=== PATIENT | female | born 1950 | race Caucasian/White ===

== ENCOUNTER 2025-05-06 09:14 | Outpatient (CLI) | payer MEDICARE, SELFPAY ==
--- OUTSIDE RECORDS SUMMARY | 2024-12-16 07:40 | XMS_ITS ---
Author Organization [facility] Address [address] [phone] Care Team Providers Care Tutoring Manager Name Role Phone HORTENCIA HERNANDEZ Primary Care [...] Status Risk Notes Problem Problem, abnormal examination ([id number]) Encounter for general adult medical examination with abnormal findings (Z00.01) Active confirmed Encounters Encounter Location Date [place] [address] [phone] 12/16/2024 HORTENCIA HERNANDEZ Encounter for general adult [...] Notes * VLADIMIR GEIGEROB:1950 (74 yo F)Acc No.[id number]:12/16/2024 Progress Notes Patient: KATI BARTLETT Provider: Charlene Hernandez M.D. :1950 A ge:74 Y S ex:Female Date:12/16/2024 Address:[address] [place] [address] Subjective: * Chief Complaints: * 1 . [...] History: M other: 61 yrs, diagnosed with [place]. B zahraa: 58 yrs, diagnosed with Heart [...] Electronic signature of HORTENCIA HERNANDEZ MD on 05/06/2025 at 09:21 AM EDT Sign off status: Pending * Provider: Charlene Hernandez M.D. Date: 0 12/16/2024 Generated for Kb varghese/Emmanuelle/eTleonasmpatience on: 0 05/06/2025 09:21 AM EDT History and Physical Notes * [...]
--- OUTSIDE RECORDS SUMMARY | 2025-05-06 09:21 | XMS_ITS | Patient Health Record ---
Author Organization [place] Address [address] [id number] Care Team Providers Care Academic Coach Name Role Phone HORTENCIA ROWAN Primary Care Provider [phone] Allergies Allergen (clinical drug ingredient) Drug/Non Drug Allergy documented on EMR Reaction Allergy Type Onset Date Status Vaccine product containing Influenza virus antigen (medicinal product) Influenza Vaccines Unknown Drug Allergy 11/13/2018 Ac tive Latex Latex Unknown Allergy 11/13/2018 Active Results Component Value Reference Range Notes TSH (899) Reviewed date:02/07/2025 09:53:02 AM Interpretation: Performing Lab:TP, [facility]-Bxvuj2012 [place] Gerry Finley MD Notes/Report: FASTING:YES FASTING: YES TSH 3.98 0.40-4.50 mIU/L T4, FREE (866) Reviewed date:02/07/2025 09:53:02 AM Interpretation: Performing Lab:[facility]21 [place] Gerry Finley MD Notes/Report: FASTING:YES FASTING: YES T4, FREE 1.1 0.8-1.8 ng/dL CBC (INCLUDES DIFF/PLT) (639 9) Reviewed date:02/07/2025 09:53:02 AM Interpretation: Performing Lab:[facility]15 [place] Gerry Finley MD Notes/Report: FASTING:YES FASTING: YES WHITE BLOOD CELL COUNT 6.9 3.8-10.8 Thousand/ uL RED BLOOD CELL COUNT 4.58 3.80-5.10 Million/uL HEMOGLOBIN 13.0 11.7-15.5 g/dL HEMATOCRIT 41.1 35.0-45.0 % MCV 89.7 80.0-100.0 fL MCH 28.4 27.0-33.0 pg MCHC 31.6 32.0-36.0 g/dL For adults, a slight decrease in the calculated MCHC value (in the range of 30 to 32 g/dL) is most likely not clinically significant; however, it should be interpreted with caution in correlation with other red cell parameters and the patient's clinical condition. RDW 13.2 11.0-15.0 % PLATELET COUNT 254 140-400 Thousand/uL MPV 10.8 7.5-12.5 fL ABSOLUTE NEUTROPHILS 3188 6795-9345 cells/uL ABSOLUTE LYMPHOCYTES 2974 850-3900 cells/uL ABSOLUTE MONOCYTES 490 200-950 cells/uL ABSOLUTE EOSINOPHILS 152 15-500 cells/uL ABSOLUTE BASOPHILS 97 0-200 cells/uL NEUTROPHILS 46.2 LYMPHOCYTES 43.1 MONOCYTES 7.1 EOSINOPHILS 2.2 BASOPHILS 1.4 ALT (823) Reviewed date:02/07/2025 09:53:02 AM Interpretation: Performing Lab:[facility]-Wygwb4521 [address] Alonzo [id number] Gerry Finley MD Notes/Report: FASTING:YES FASTING: YES ALT 14 6-29 U/L AST (822) Reviewed date:02/07/2025 09:53:02 AM Interpretation: Performing Lab:[facility]9317 [place] Gerry Finley MD Notes/Report: FASTING:YES FASTING: YES AST 17 10-35 U/L BASIC METABOLIC PANEL (80767 ) Reviewed date:02/07/2025 09:53:02 AM Interpretation: Performing Lab:[facility]aura[facility]wcb3048 [address]zo [id number] Gerry Finley MD Notes/Report: FASTING:YES FASTING: YES GLUCOSE 117 65-99 mg/dL Fasting reference interval For someone without known diabetes, a glucose value between 100 and 125 mg/dL is consistent with prediabetes and should be confirmed with a follow-up test. UREA NITROGEN (BUN) 27 7-25 mg/dL CREATININE 1.16 0.60-1.00 mg/dL EGFR 49 > OR = 60 mL/min/1.73m2 BUN/CREATININE RATIO 23 6-22 (calc) SODIUM 142 135-146 mmol/L POTASSIUM 3.9 3.5-5.3 mmol/L CHLORIDE 105 98-110 mmol/L CARBON DIOXIDE 27 20-32 mmol/L CALCIUM 9.5 8.6-10.4 mg/dL LIPID PANEL, STANDARD (7600) Reviewed date:02/07/2025 09:53:02 AM Interpretation: Performing Lab:[facility]-Ufqba1028 Lisa Alonzo [id number] Gerry Finley MD Notes/Report: FASTING:YES FASTING: YES CHOLESTEROL, TOTAL 249 <200 mg/dL HDL CHOLESTEROL 77 > OR = 50 mg/dL TRIGLYCERIDES 148 <150 mg/dL LDL-CHOLESTEROL 145 Reference range: <100 Desirable range <100 mg/dL for primary prevention; <70 mg/dL for patients with CHD or diabetic patients with > or = 2 CHD risk factors. LDL-C is now calculated using the Loco calculation, which is a validated novel method providing better accuracy than the Friedewald equation in the estimation of LDL-C. Leeroy SS et al. KRYSTIN. 2013;310(19): 3819-7331 (http://education.VIRIDAXIS.GoPago/faq/QFP376) CHOL/HDLC RATIO 3.2 <5.0 (calc) NON HDL CHOLESTEROL 172 <130 mg/dL (calc) For patients with diabetes plus 1 major ASCVD risk factor, treating to a non-HDL-C goal of <100 mg/dL (LDL-C of <70 mg/dL) is considered a therapeutic option. HEMOGLOBIN A1c (496) Reviewed date:02/14/2025 09:24:59 AM Interpretation: Performing Lab:[facility]-[id number] Lisa Alonzo [id number] Gerry Finley MD Notes/Report: NON-FASTING; NON-FASTING FASTING:YES FASTING: YES HEMOGLOBIN A1c 6.4 <5.7 % of total Hgb For someone without known diabetes, a hemoglobin A1c value between 5.7% and 6.4% is consistent with prediabetes and should be confirmed with a follow-up test. For someone with known diabetes, a value <7% indicates that their diabetes is well controlled. A1c targets should be individualized based on duration of diabetes, age, comorbid conditions, and other considerations. This assay result is consistent with an increased risk of diabetes. Currently, no consensus exists regarding use of hemoglobin A1c for diagnosis of diabetes for children. URINALYSIS, COMPLETE W/REFLE X TO CULTURE (3020) Reviewed date:02/14/2025 09:24:58 AM Interpretation: Performing Lab:[facility]-Cbxzs260[address], PqfocIO[address] Gerry Finley MD Notes/Report: NON-FASTING; NON-FASTING FASTING:YES FASTING: YES NON-FASTING; NON-FASTING FASTING:YES FASTING: YES NON-FASTING; NON-FASTING FASTING:YES FASTING: YES COLOR YELLOW YELLOW APPEARANCE CLOUDY CLEAR SPECIFIC GRAVITY 1.015 1.001-1.035 PH 5.5 5.0-8.0 GLUCOSE NEGATIVE NEGATIVE BILIRUBIN NEGATIVE NEGATIVE KETONES NEGATIVE NEGATIVE OCCULT BLOOD TRACE NEGATIVE PROTEIN 1+ NEGATIVE NITRITE POSITIVE NEGATIVE LEUKOCYTE ESTERASE 2+ NEGATIVE WBC > OR = 60 < OR = 5 /HPF RBC 0-2 < OR = 2 /HPF SQUAMOUS EPITHELIAL CELLS 0-5 < OR = 5 /HPF BACTERIA MANY NONE SEEN /HPF HYALINE CAST NONE SEEN NONE SEEN /LPF NOTE This urine was analyzed for the presence of WBC, RBC, bacteria, casts, and other formed elements. Only those elements seen were reported. REFLEXIVE URINE CULTURE CULTURE INDICATED - RESULTS TO FOLLOW CULTURE, URINE, ROUTINE Micro Number: [id number] Test Status: Final Specimen Source: Urine Specimen Quality: Adequate Result: Greater than 100,000 CFU/mL of Escherichia coli E.coli INT JEROMY AMOX/CLAVULANATE S <=2 AMP/SULBACTAM S <=2 CEFAZOLIN NR <=4 2 CEFEPIME S <=0.12 CEFTAZIDIME S <=1 CEFTRIAXONE S <=0.25 CIPROFLOXACIN S <=0.06 GENTAMICIN S <=1 IMIPENEM S <=0.25 LEVOFLOXACIN S <=0.12 MEROPENEM S <=0.25 NITROFURANTOIN S <=16 PIP/TAZOBACTAM S <=4 TRIMETHOPRIM/SULFA S <=20 S = Susceptible I = Intermediate R = Resistant NS = Not susceptible SDD = Susceptible Dose Dependent * = Not Tested NR = Not Reported NN = See Therapy Comments THERAPY COMMENTS Note 1: For infections other than uncomplicated UTI caused by E. coli, K. pneumoniae or P. mirabilis: Cefazolin is resistant if JEROMY > or = 8 mcg/mL. (Distinguishing susceptible versus intermediate for isolates with JEROMY < or = 4 mcg/mL requires additional testing.) Note 2: For uncomplicated UTI caused by E. coli, K. pneumoniae or P. mirabilis: Cefazolin is susceptible if JEROMY <32 mcg/mL and predicts susceptible to the oral agents cefaclor, cefdinir, cefpodoxime, cefprozil, cefuroxime, cephalexin and loracarbef. CULTURE, URINE, ROUTINE SEE NOTE CULTURE INDICATED - RESULTS TO FOLLOW CULTURE, URINE, ROUTINE Micro Number: [id number] Test Status: Final Specimen Source: Urine Specimen Quality: Adequate Result: Greater than 100,000 CFU/mL of Escherichia coli E.coli INT JEROMY AMOX/CLAVULANATE S <=2 AMP/SULBACTAM S <=2 CEFAZOLIN NR <=4 2 CEFEPIME S <=0.12 CEFTAZIDIME S <=1 CEFTRIAXONE S <=0.25 CIPROFLOXACIN S <=0.06 GENTAMICIN S <=1 IMIPENEM S <=0.25 LEVOFLOXACIN S <=0.12 MEROPENEM S <=0.25 NITROFURANTOIN S <=16 PIP/TAZOBACTAM S <=4 TRIMETHOPRIM/SULFA S <=20 S = Susceptible I = Intermediate R = Resistant NS = Not susceptible SDD = Susceptible Dose Dependent * = Not Tested NR = Not Reported NN = See Therapy Comments THERAPY COMMENTS Note 1: For infections other than uncomplicated UTI caused by E. coli, K. pneumoniae or P. mirabilis: Cefazolin is resistant if JEROMY > or = 8 mcg/mL. (Distinguishing susceptible versus intermediate for isolates with JEROMY < or = 4 mcg/mL requires additional testing.) Note 2: For uncomplicated UTI caused by E. coli, K. pneumoniae or P. mirabilis: Cefazolin is susceptible if JEROMY <32 mcg/mL and predicts susceptible to the oral agents cefaclor, cefdinir, cefpodoxime, cefprozil, cefuroxime, cephalexin and loracarbef. Reason For Referral No Information Medications Medication SIG (Take, Route, Frequency, Duration) Notes Start Date End Date Status Levoxyl 25 MCG 1 tablet in the morn ing on an empty stomach Orally Once a day; Duration: 90 days Active Cherelle Aspirin EC Low Dose 81 MG 1 tablet Orally Once a day Active Losartan Potassium 100 MG 1 tablet Orall y Once a day Active Rosuvastatin Calcium 10 MG 1 tablet Oral ly Once a day; Duration: 90 days Active Metoprolol Tartrate 25 MG 1 tablet with food Orally Twice a day Active Social History Tobacco Use: Social History Observation [...] Problem Status W/U Status Risk Notes Problem Essential hypertension (80440452) Essential (primary) hypertension (I10) Active confirmed Problem First degree hemorrhoids (880426914) First degree hemorrhoids (K64.0) Active confirmed Problem Other cyst of bone, left lower leg (M85.662) Active confirmed Problem Fatigue (25117773) Other fatigue (R53.83) Active confirmed Problem Syncope and collapse (496136986) Syncope and collapse (R55) Active confirmed Problem Hyperglycemia (42598146) Hyperglycemia, unspecified (R73.9) Active confirmed Problem Problem, abnormal examination (45360865) Encounter for general adult medical examination with abnormal findings (Z00.01) Active confirmed Problem Hyperlipidaemia (63963849) Hyperlipidemia, unspecified hyperlipidemia type (E78.5) Active confirmed Problem Hypothyroidism (92141696) Hypothyroidism, unspecified type (E03.9) Active confirmed Problem Diverticular disease of colon (073126621) Colon, diverticulosis (K57.30) Active confirmed Problem Urinary tract infectious disease (19629799) Urinary tract infection without hematuria, site unspecified (N39.0) Active confirmed Problem Benign paroxysmal positional vertigo (893917134) Benign paroxysmal vertigo, unspecified laterality (H81.10) Active confirmed Problem Chronic kidney disease stage 3 (disorder) (076060226) Stage 3 chronic kidney disease, unspecified whether stage 3a or 3b CKD (N18.30) Active confirmed Problem Osteopenia (917517978) Osteopenia, unspecified location (M85.80) Active confirmed Vital Signs Heart Rate 79 /min 12/30/2024 Blood pressure diastolic 83 mm Hg 12/30/2024 Height-cm 167.64 cm 12/30/2024 Weight-kg 91.44 kg 12/30/2024 Height 66 in 12/30/2024 Blood pressure systolic 133 mm Hg 12/30/2024 Weight 201.6 lbs 12/30/2024 BMI 32.54 kg/m2 12/30/2024 Encounters Encounter Location Date Provider Diagnosis Hortencia MONREAL [address] [id number] 12/30/2024 HORTENCIA ROWAN Encounter for general adult medical examination with abnormal findings Z00.01 ; Stage 3 chronic kidney disease, unspecified whether stage 3a or 3b CKD N18.30 ; Osteopenia, unspecified location M85.80 ; Hyperlipidemia, unspecified hyperlipidemia type E78.5 ; Hypothyroidism, unspecified type E03.9 and Essential (primary) hypertension I10 Hortencia MONREAL [address] [id number] 12/30/2024 HORTENCIA MONREAL [address] [place] [id number] 02/07/2025 HORTENCIA ROWAN Urinary tract infection without hematuria, site unspecified N39.0 ; Hyperlipidemia, unspecified hyperlipidemia type E78.5 and Hyperglycemia, unspecified R73.9 Hortencia MONREAL [address] [id number] 02/14/2025 HORTENCIA ROWAN Assessments Encounter Date Diagnosis (ICD Code) Assessment Notes Treatment Notes Treatment Clinical Notes Section Notes 02/07/2025 Urinary tract infection without hematuria, site unspecified (ICD-10 - N39.0) 12/30/2024 Encounter for general adult medical examination with abnormal findings (ICD-10 - Z00.01) 02/07/2025 Hyperlipidemia, unspecified hyperlipidemia type (ICD-10 - E78.5) 02/07/2025 Hyperglycemia, unspecified (ICD-10 - R73.9) 12/30/2024 Stage 3 chronic kidney disease, unspecified whether stage 3a or 3b CKD (ICD-10 - N18.30) Recheck labs 12/30/2024 Osteopenia, unspecified location (ICD-10 - M85.80) Recheck labs 12/30/2024 Hyperlipidemia, unspecified hyperlipidemia type (ICD-10 - E78.5) Recheck labs 12/30/2024 Hypothyroidism, unspecified type (ICD-10 - E03.9) Recheck labs 12/30/2024 Essential (primary) hypertension (ICD-10 - I10) Stable Plan Of Treatment No Information Insurance Providers Payer Name Payer Address Payer Phone Subscriber Number Group Number Insured Name Patient Relationship to Insured Coverage Start Date Coverage End Date MEDICARE PART B [address] [address] ANA ARREDONDO [id number] KATI GEIGER Self - patient is the insured 3 [facility] [address] [place], [place] [id number] KATI GEIGER Self - patient is the insured 3 Medical (General) History Medical History History ICD Code Mammogram: 01/03/2024 Neg Fibrocystic dense breast Dexa: 04/14/2023 Osteopenia Essential (primary) hypertension Colonoscopy: 01/02/2019 Normal First degree hemorrhoids K64.0 Colon, diverticulosis K57.30 Colonoscopy: 2018-Polyps removed (Benign ), Recheck in 6 mo Arthritis Leaky Bladder High blood pressure Surgical History Surgery Date(Month/Year) Closed fracture of left lower limb Tubal ligation
[2025-05-06 09:24] LABS: Microscopic, Urine URINE MICROSCOPIC (MICROSCOPIC)
[2025-05-06 09:50] LABS: Hematocrit 40.2 % (37.0-47.0); Hemoglobin 12.2 g/dL (12.2-16.2); Immature Granulocytes % 0.2 %; Mean Corpuscular HGB Conc 30.3 g/dL (31.8-35.4); Mean Corpuscular Hemoglobin 27.4 pg (27.0-31.2); Mean Corpuscular Volume 90.3 fl (81-99); Nucleated Red Blood Cells % 0 %; Platelet Count 231 K/mm3 (142-424); Red Blood Count 4.45 M/mm3 (4.20-5.40); Red Cell Distribution Width-SD 46.5 fL; White Blood Count 5.4 K/mm3 (4.8-10.8)
[2025-05-06 09:51] LABS: Bilirubin,Urine Negative (Negative); Color,Urine YELLOW (Yellow); Glucose,Urine (UA) Negative (Negative); Ketones,Urine Negative (Negative); Leukocyte Esterase,Urine 2+ (Negative); PH,Urine 5.5 (5.0-8.5); Protein,Urine Negative (Negative); Specific Gravity, Urine 1.025 (1.005-1.030); Urobilinogen,Urine 0.2 EU/dl (0.2)
[2025-05-06 10:16] LABS: WBC,Urine 50-100 #/hpf (0-3)
[2025-05-06 10:17] LABS: Bacteria,Urine 1+ /lpf
[2025-05-06 10:29] LABS: Albumin Level 4.1 g/dl (3.5-5.0); Chloride 103 mmol/L (98-107); Potassium 4.3 mmoL/L (3.5-5.1)
[2025-05-06 10:31] LABS: Blood Urea Nitrogen 23 mg/dl (7-17); Creatinine,Serum 1.10 mg/dl (0.52-1.04); Estimated Glomerular Filt Rate 48 ml/min (>60); GFR (African American) 58 ML/MIN (>60)
[2025-05-06 10:32] LABS: Alanine Aminotransferase 19 U/L (12-78); Albumin/Globulin Ratio 1.5 (1.1-1.8); Alkaline Phosphatase 75 U/L (38-126); Aspartate Amino Transferase 29 U/L (14-36); Bilirubin,Total 0.6 mg/dl (0.2-1.3); Calcium 9.8 mg/dl (8.4-10.2); Carbon Dioxide 28 mmol/L (22.0-30.0); Cholesterol 249 mg/dl (140-200); Globulin 2.8 g/dL (1.3-3.2); Glucose 117 mg/dl (74-100); HDL Cholesterol 70 mg/dl (40-60); Iron 84 ug/dL (37-170); Total Protein,Serum 6.9 g/dl (6.3-8.2); Triglycerides 202 mg/dl (30-150)
[2025-05-06 10:49] LABS: Free T4 (Free Thyroxine) 1.13 ng/dl (0.78-2.19)
[2025-05-06 10:50] LABS: Total Iron Binding Capacity 256 ug/dL (265-497)
[2025-05-06 11:05] LABS: Thyroid Stimulating Hormone 2.78 uIU/mL (0.465-4.68)
[2025-05-06 11:09] LABS: Ferritin 131 ng/ml (11.1-264)
[2025-05-06 11:10] LABS: Anion Gap 12.3 mEq/L (5-15); Sodium 139 mmol/L (136-145)
[2025-05-06 11:27] LABS: Hepatitis C Ab Qual. W/ RFX NEGATIVE (Negative)
[2025-05-06 12:03] LABS: Vitamin B12 893 pg/mL (239-931)
[2025-05-06 13:21] LABS: Hemoglobin A1C 7.4 % (4.0-6.0)
== END 2025-05-06 23:59 | disposition home or self-care (01) ==
LOC: LAB 09:16
PROVIDERS: PCP Nurse Practitioner Family; Visit Provider Nurse Practitioner Family
DX: E03.9 Hypothyroidism, unspecified (principal); E78.5 Hyperlipidemia, unspecified; F41.9 Anxiety disorder, unspecified; F32.A Depression, unspecified; K22.2 Esophageal obstruction; K21.9 Gastro-esophageal reflux disease without esophagitis; Z11.59 Encounter for screening for other viral diseases; Z11.4 Encounter for screening for human immunodeficiency virus [HIV]; E11.9 Type 2 diabetes mellitus without complications; R41.3 Other amnesia; G47.33 Obstructive sleep apnea (adult) (pediatric); T17.908A Unspecified foreign body in respiratory tract, part unspecified causing other injury, initial encounter; Z76.89 Persons encountering health services in other specified circumstances; I10 Essential (primary) hypertension
CPT/HCPCS: 36415; 80053; 80061; 80074; 81001; 82607; 82728; 83036; 83540; 83550; 84439; 84443; 85025; 87086; 87088; 87186; 87389

== ENCOUNTER 2025-06-25 10:48 | Outpatient (CLI) | payer MEDICARE, SELFPAY ==
--- OUTSIDE RECORDS SUMMARY | 2024-12-16 07:40 | XMS_ITS ---
Author Organization [facility] Address [address] [phone] Care Team Providers Care Wallpaper Consultant Name Role Phone HORTENCIA HERNANDEZ Primary Care Provider [phone] Allergies Allergen (clinical drug ingredient) Drug/Non Drug Allergy documented on EMR Reaction Allergy Type Onset Date Status Vaccine product containing Influenza virus antigen (medicinal product) Influenza Vaccines Unknown Drug Allergy 11/13/2018 Ac tive Latex Latex Unknown Allergy 11/13/2018 Active REASON FOR [...] Problem Status W/U Status Risk Notes Problem Problem, abnormal examination (46667902) Encounter for general adult medical examination with abnormal findings (Z00.01) Active confirmed Encounters Encounter Location Date [place] [address] [phone] 12/16/2024 HORTENCIA HERNANDEZ Encounter for general adult [...] Notes * VLADIMIR GEIGEROB:1950 (74 yo F)Acc No.[id number]:12/16/2024 Progress Notes Patient: KATI BARTLETT Provider: Charlene Hernandez M.D. :1950 A ge:74 Y S ex:Female Date:12/16/2024 Address:[address] [place] [address] Subjective: * Chief Complaints: * 1 . [...] History: M other: 61 yrs, diagnosed with [place]. B zahraa: 58 yrs, diagnosed with Heart Disease. F [...] F unctional Status Assessment ADL's were assessed -2024 Patient needs assistance with ADLs??No A dvanced Care Planning Date discussed -2024 Care Plan: * Problems: * Billing Information: * Visit Code: * Procedure Codes: * Electronic signature of HORTENCIA HERNANDEZ MD on 06/25/2025 at 11:00 AM EDT Sign off status: Pending * Provider: Charlene Hernandez M.D. Date: 0 12/16/2024 Generated for Kb varghese/Emmanuelle/eTransmitting on: 0 06/25/2025 11:00 AM EDT History and Physical Notes * [...]
--- NOTE | 2025-06-25 11:00 | FL_ITS ---
FINAL REPORT CLINICAL HISTORY: choking 2:04 sec, 139.18 mGy FINDINGS: MODIFIED BARIUM SWALLOW HISTORY: Dysphagia. FINDINGS: Fluoroscopy was provided for the speech pathologist to evaluate the swallowing mechanism. The patient was given several different consistencies of barium while the swallow was visualized fluoroscopically. 27 total images were performed. Radiation exposure in Reference air Kerma: 139.18 mGy FLUOROSCOPY TIME: 2 minutes, 4 seconds IMPRESSION: Modified barium swallow under fluoroscopic guidance. Please see speech pathologist's report. Reviewed, Interpreted and Dictated by Steve Colunga MD Transcribed by Luanne Whittaker PA-C Authenticated and [facility]
--- OUTSIDE RECORDS SUMMARY | 2025-06-25 11:01 | XMS_ITS | Patient Health Record ---
Author Organization Hortencia Gaming [place] Address [address] [id number] Care Team Providers Care Retail Customer Service Specialist Name Role Phone HORTENCIA ROWAN Primary Care Provider Allergies Allergen (clinical drug ingredient) Drug/Non Drug Allergy documented on EMR Reaction Allergy Type Onset Date Status Vaccine product containing Influenza virus antigen (medicinal product) Influenza Vaccines Unknown Drug Allergy 11/13/2018 Ac tive Latex Latex Unknown Allergy 11/13/2018 Active Results Component Value Reference Range Notes TSH (899) Reviewed date:02/07/2025 09:53:02 AM Interpretation: Performing Lab:TP, [facility]-Ljqad9945 [place] Gerry Finley MD Notes/Report: FASTING:YES FASTING: YES TSH 3.98 0.40-4.50 mIU/L T4, FREE (866) Reviewed date:02/07/2025 09:53:02 AM Interpretation: Performing Lab:[facility]hvgi1108 [place] Gerry Finley MD Notes/Report: FASTING:YES FASTING: YES T4, FREE 1.1 0.8-1.8 ng/dL CBC (INCLUDES DIFF/PLT) (639 9) Reviewed date:02/07/2025 09:53:02 AM Interpretation: Performing Lab:[facility]Adsxv6424 [place] Gerry Finley MD Notes/Report: FASTING:YES [...] MPV 10.8 7.5-12.5 fL ABSOLUTE NEUTROPHILS 3188 7473-0672 cells/uL ABSOLUTE LYMPHOCYTES 2974 850-3900 cells/uL ABSOLUTE MONOCYTES 490 200-950 cells/uL ABSOLUTE EOSINOPHILS 152 15-500 cells/uL ABSOLUTE BASOPHILS 97 0-200 cells/uL NEUTROPHILS 46.2 LYMPHOCYTES 43.1 MONOCYTES 7.1 EOSINOPHILS 2.2 BASOPHILS 1.4 ALT (823) Reviewed date:02/07/2025 09:53:02 AM Interpretation: Performing Lab:[facility]-Qqunb1586 Lisa Alonzo [id number] Gerry Finley MD Notes/Report: FASTING:YES FASTING: YES ALT 14 6-29 U/L AST (822) Reviewed date:02/07/2025 09:53:02 AM Interpretation: Performing Lab:[facility]Xbgtp1328 [place] Gerry Finley MD Notes/Report: FASTING:YES FASTING: YES AST 17 10-35 U/L BASIC METABOLIC PANEL (31981 ) Reviewed date:02/07/2025 09:53:02 AM Interpretation: Performing Lab:[facility]auraXopxr0176 Lisa Alonzo QfkskVX[address] Gerry Finley MD Notes/Report: FASTING:YES FASTING: YES [...] Reviewed date:02/07/2025 09:53:02 AM Interpretation: Performing Lab:[facility]-Selyo4352 Lisa Alonzo HqepeDZ[address] Gerry Finley MD Notes/Report: FASTING:YES FASTING: YES [...] LDL-C. Leeroy SS et al. KRYSTIN. 2013;310(19): 0990-2831 (http://education.Etopus.TURN8/faq/VOF680) CHOL/HDLC RATIO 3.2 <5.0 (calc) NON HDL CHOLESTEROL 172 <130 mg/dL (calc) For patients with diabetes plus 1 major ASCVD risk factor, treating to a non-HDL-C goal of <100 mg/dL (LDL-C of <70 mg/dL) is considered a therapeutic option. HEMOGLOBIN A1c (496) Reviewed date:02/14/2025 09:24:59 AM Interpretation: Performing Lab:[facility]-Yfuij0052 Lisa Alonzo [id number] Gerry Finley MD Notes/Report: NON-FASTING; NON-FASTING FASTING:YES [...] Reviewed date:02/14/2025 09:24:58 AM Interpretation: Performing Lab:[facility]-Tvqka7055 [address], CqdamYA[address] Gerry Finley MD Notes/Report: NON-FASTING; NON-FASTING FASTING:YES [...] TO FOLLOW CULTURE, URINE, ROUTINE Micro Number: [id number] Test Status: Final Specimen Source: Urine Specimen [...] TO FOLLOW CULTURE, URINE, ROUTINE Micro Number: [id number] Test Status: Final Specimen Source: Urine Specimen [...] W/U Status Risk Notes Problem Essential hypertension (58635852) Essential (primary) hypertension (I10) Active confirmed Problem First degree hemorrhoids (244209134) First degree hemorrhoids (K64.0) Active confirmed Problem Other cyst of bone, left lower leg (M85.662) Active confirmed Problem Fatigue (93827605) Other fatigue (R53.83) Active confirmed Problem Syncope and collapse (274935283) Syncope and collapse (R55) Active confirmed Problem Hyperglycemia (43484040) Hyperglycemia, unspecified (R73.9) Active confirmed Problem Problem, abnormal examination (72095325) Encounter for general adult medical examination with abnormal findings (Z00.01) Active confirmed Problem Hyperlipidaemia (12660851) Hyperlipidemia, unspecified hyperlipidemia type (E78.5) Active confirmed Problem Hypothyroidism (25291680) Hypothyroidism, unspecified type (E03.9) Active confirmed Problem Diverticular disease of colon (320340540) Colon, diverticulosis (K57.30) Active confirmed Problem Urinary tract infectious disease (99392006) Urinary tract infection without hematuria, site unspecified (N39.0) Active confirmed Problem Benign paroxysmal positional vertigo (802414225) Benign paroxysmal vertigo, unspecified laterality (H81.10) Active confirmed Problem Chronic kidney disease stage 3 (disorder) (011814827) Stage 3 chronic kidney disease, unspecified whether stage 3a or 3b CKD (N18.30) Active confirmed Problem Osteopenia (113853062) Osteopenia, unspecified location (M85.80) Active confirmed Vital Signs Heart Rate 79 /min 12/30/2024 Height-cm 167.64 cm 12/30/2024 Blood pressure diastolic 83 mm Hg 12/30/2024 Weight-kg 91.44 kg 12/30/2024 Height 66 in 12/30/2024 Blood pressure systolic 133 mm Hg 12/30/2024 Weight 201.6 lbs 12/30/2024 BMI 32.54 kg/m2 12/30/2024 Encounters Encounter Location Date Provider Diagnosis Hortencia MONREAL [address] [id number] 12/30/2024 HORTENCIA ROWAN Encounter for general adult medical examination with abnormal findings Z00.01 ; Stage 3 chronic kidney disease, unspecified whether stage 3a or 3b CKD N18.30 ; Osteopenia, unspecified location M85.80 ; Hyperlipidemia, unspecified hyperlipidemia type E78.5 ; Hypothyroidism, unspecified type E03.9 and Essential (primary) hypertension I10 Hortencia MONREAL [address] [id number] 12/30/2024 HORTENCIA MONREAL [address] [place] [id number] 02/07/2025 HORTENCIA ROWAN Urinary tract infection without hematuria, site unspecified N39.0 ; Hyperlipidemia, unspecified hyperlipidemia type E78.5 and Hyperglycemia, unspecified R73.9 Hortencia MONREAL [address] [id number] 02/14/2025 HORTENCIA ROWAN Assessments Encounter Date Diagnosis [...] End Date MEDICARE PART B [address] [address] A[place] ARREDONDO [id number] KATI GEIGER Self - patient is the insured 3 [facility] [address] [place], [place] [id number] KATI GEIGER Self - patient is the [...]
[2025-06-25] MEDS: BARIUM SULFATE(LIQUID E-Z-PAQUE);355ML BOTTLE 355 ML PO (12:12)
--- NOTE | 2025-06-25 13:09 | HMH.SLMBS2 ---
Speech & Language Evaluation Speech/Lang Modified Barium Swallow Start: 06/25/25 13:01 Freq: once Status: Complete Protocol: Document 06/25/25 13:01 CELENA (Rec: 06/25/25 13:09 [facility] [id number]) VOCATIONAL CASE MANAGER Evaluation Information VOCATIONAL CASE MANAGER Evaluation Information Date of Evaluation: 06/25/25 Time of Evaluation: 11:20 Evaluation Type Initial Certification Reason for Referral choking per MD order Does Patient Qualify No for Service Qualify/Failure Based on clinical observations made during the Comment instrumental assessment, further skilled speech therapy services are not warranted at this time. Oral and pharyngeal phases of swallow were observed to be WFL, and no aspiration observed on any consistency trialed. MBS Recommendations Plan Pt/Guardian verbally Yes ack understanding of dx/prognosis/ goals Diet Dietary Regular,Thin Liquids Recommendations SL Swallow Alt bite w/sip thru meal,Standard Aspiration Prec.,Eat Guidelines at slow rate,Reflux precautions Treatment/Strategies Strategy/Precaution Sitting Upright (90 deg),Small Bites and Sips,Alternate Recommended Liquids/Solids Referral/Other Recommended GI Consult Referrals Comment Pt expressed globus sensation as well as pain in stomach area after swallow. Pt states she has to drink water to clear sensation. VOCATIONAL CASE MANAGER Patient History Section VOCATIONAL CASE MANAGER Patient History Primary Medical Pt reported heart complications d/t COVID diagnosis. No History other significant PMHx expressed. Does Patient have Yes Reflux or GERD? Does Patient Active Directory Engineer Coughing or Choking Episodes? Does Patient Avoid No Certain Food Textures/ Consistencies? Does Patient Utilize No Compensatory Strategies During Meals? Has Patient No Experienced Significant Weight Loss? Does Pt have Hx of No Recurrent Pneumonias or Respiratory Infections? Has Patient Noticed No Change in Vocal Quality? Mod Barium Swallow Study Patient Orientation Patient Orientation Person,Place,Time,Situation Oral Expression No Impairment Ability Ability to Follow Excellent Directions Is Patient able to Yes Perform Volitional Throat Clear? Is Patient able to Yes Perform Volitional Cough? Is Patient able to Yes Manage Secretions Independently? Mod Barium Swallow Set Up Radiologist Alfredo Medina Patient Presentation Awake,Alert,Appropriate,Follows Commands : Bolus Consistencies Thin Liquids,Pudding,Puree,Mechanical Soft,Regular,Pill Trialed: (Barium Tablet) MBSS Observations Consistency & Strategy Trial Regular Penetration/ 1 Aspiration Scale PAS Amount Neither Pharyngeal Residual 0-9% Mechanical Soft Penetration/ 1 Aspiration Scale PAS Amount Neither Pharyngeal Residual 0-9% Puree Penetration/ 1 Aspiration Scale PAS Amount Neither Pharyngeal Residual 0-9% Pudding Penetration/ 1 Aspiration Scale PAS Amount Neither Pharyngeal Residual 0-9% Thin Penetration/ 1 Aspiration Scale PAS Amount Neither Pharyngeal Residual 0-9% Mod Barium Swallow Impressions Oral Phase Summary & Impressions Oral Phase: No Impairment (WFL) Impression Oral Phase: Labial No Impairment (WFL) Closure Oral Phase: Bolus No Impairment (WFL) Formation Pooling L/ R Oral Phase: Bolus No Impairment (WFL) Formation Under Tongue Oral Phase: Bolus No Impairment (WFL) Formation Scattered Loss Oral Phase: No Impairment (WFL) Mastication Rotary Chew Oral Phase: No Impairment (WFL) Mastication Munching Oral Phase: No Impairment (WFL) Mastication Lateralization Oral Phase: Lingual No Impairment (WFL) Movement Oral Phase: Residue No Impairment (WFL) Clearing Oral Phase: Summary No impairment of oral phase of swallow. Adequate labial seal, as well as mastication and manipulation of bolus on all consistencies trialed. No oral residue observed on any consistency trialed. Pharyngeal Phase Summary & Impressions Pharyngeal Phase: No Impairment (WFL) Impression Pharyngeal Phase: A/ No Impairment (WFL) P Lingual Propulsion Spills Pharyngeal Phase: No Impairment (WFL) Swallow Response Delay Pharyngeal Phase: No Impairment (WFL) Base of Tongue Pharyngeal Phase: No Impairment (WFL) Epiglottic Coverage Pharyngeal Phase: No Impairment (WFL) Laryngeal Elevation Pharyngeal Phase: No Impairment (WFL) Vallecular Retention Clearing Pharyngeal Phase: No Impairment (WFL) Pharyngeal Wall Residue Clearing Pharyngeal Phase: No Impairment (WFL) Piriform Sinus Retention Pharyngeal Phase: No impairment of pharyngeal phase of swallow. No Summary aspiration/penetration observed on any consistency trialed. Adequate hyolaryngeal excursion and elevation and base of tongue retractions resulting in adequate epiglottic coverage. No pharyngeal residue observed on any consistency trialed. Aspiration Aspiration? No Silent Aspiration? No VOCATIONAL CASE MANAGER MBSS Goals Education Instructions VOCATIONAL CASE MANAGER discussed clinical observations made throughout provided instrumental assessment (MBSS), diet recommendations, and compensatory strategies with pt who expressed understanding. Patient/Caregiver Able to recall/restate Able to Recall Information Reinforcement needed No PHYSICIAN CERTIFICATION: I certify the specified therapy services for Mary Morris are required, authorized, and reviewed every 30 days.
== END 2025-06-25 23:59 | disposition home or self-care (01) ==
LOC: RAD 10:50
PROVIDERS: PCP Nurse Practitioner Family; Visit Provider Nurse Practitioner Family
DX: E03.9 Hypothyroidism, unspecified (principal); I10 Essential (primary) hypertension; E78.5 Hyperlipidemia, unspecified; F41.9 Anxiety disorder, unspecified; F32.A Depression, unspecified; K22.2 Esophageal obstruction; K21.9 Gastro-esophageal reflux disease without esophagitis; R53.83 Other fatigue; R13.10 Dysphagia, unspecified; Z11.59 Encounter for screening for other viral diseases; Z11.4 Encounter for screening for human immunodeficiency virus [HIV]; Z76.89 Persons encountering health services in other specified circumstances; Z13.1 Encounter for screening for diabetes mellitus
CPT/HCPCS: 74230; 92611

== ENCOUNTER 2025-08-27 07:14 | Day surgery (SDC) | payer MEDICARE, SELFPAY ==
[2025-08-22 14:35] VITALS: BMI 31.4
--- NOTE | 2025-08-25 07:18 | EXP.HP ---
History of Present Illness *Admission Date: 08/27/25 *History of present illness: Mrs. Morris is a 74-year-old female who is here for diagnostic EGD. She has struggled with dysphagia for at least 3 years. She was seen by a associate principal in [place] and had multiple upper endoscopies over the years. Her last 1 was in 2023 and she has required multiple esophageal dilations. She does have heartburn. She does get choked easily. Sometimes she will have to regurgitate food and other times, she will have painful swallowing. She does get some belching but reports no bloating or gassiness. She is not on any acid suppression therapy. The examination is deemed medically necessary for diagnostic EGD. The patient has been seen, interviewed and examined prior to the procedure by both myself and the anesthesia provider. [facility] Disclaimer: The information contained in this section may have been updated after the patient was seen, as this information can be updated by other users. Medical History Fracture of left ankle Screening for HIV (human immunodeficiency virus) Encounter for hepatitis C screening test for low risk patient Encounter for screening for diabetes mellitus Family History Mother Family history of myocardial infarction Father Family history of myocardial infarction Social History Smoking Status: Never smoker alcohol intake: current alcohol intake frequency: holidays/special occasions only substance use type: denies use current occupational status: retired Travel in the last 8 weeks?: Inside the [place] Have you lived/traveled outside US in past 30 days?: Yes Contact w/someone who lives/traveled outside US past 30 days?: No Exposure to someone with infectious disease in past 14 days?: No Do you have a fever (greater than 100.4 F or 38 C)?: No Have you tested positive for COVID-19?: No Exposed to someone with COVID-19 in past 14 days?: No Do you have a sore throat?: No Do you have a cough?: No Do you have any weakness?: No Are you experiencing any nausea/vomitting?: No Do you have any diarrhea?: No Are you experiencing any unusual bleeding?: No Do you have any muscle aches/pain?: No Do you have any abdominal pain?: No Are you experiencing loss of taste or smell?: No Other Medical History Have you received the Pneumonia Vaccine: Yes Review of Systems Review of Systems Review of systems (narrative): Negative *Cardiovascular Comments: Negative *Gastrointestinal Comments: Negative *Genitourinary Comments: Negative *Musculoskeletal Comments: Negative *Neurologic Comments: Negative Meds Home Medications and Allergies Home Medications ?Medication ?Instructions ?Recorded ?Confirmed ?Type desvenlafaxine succinate 25 mg 25 mg PO DAILY #90 tabs 05/05/25 08/27/25 Rx tablet,extended release 24 hr (Pristiq) levothyroxine 25 mcg tablet 25 mcg PO DAILY 05/05/25 08/27/25 History (Levoxyl) losartan 100 mg tablet 100 mg PO DAILY 05/05/25 08/27/25 History rosuvastatin 40 mg tablet (Crestor) 40 mg PO QHS #90 tabs 05/06/25 08/27/25 Rx hydrochlorothiazide 12.5 mg capsule 12.5 mg PO QAM #90 caps 06/17/25 08/27/25 Rx famotidine 20 mg tablet 20 mg PO DAILY #30 tabs 06/25/25 08/27/25 Rx metoprolol succinate 25 mg 25 mg PO BID 08/22/25 08/27/25 History tablet,extended release 24 hr New Prescriptions to Start Prescriptions: Allergies Allergy/AdvReac Type Severity Reaction Status Date / Time heparin AdvReac Unknown Other Verified 08/27/25 08:04 Exam Data for Last 24 hours I & O for Last 24 hours: Intake & Output 08/22/25 08/23/25 08/24/25 08/25/25 23:59 23:59 23:59 23:59 Weight 195 lb *Routine HEENT Exam Head: Present normocephalic Eye: Present EOMI and PERRL ENT: Present mucous membranes moist *Routine Neck Exam Neck: Present supple *Routine Respiratory Exam Respiratory: Present CTA bilaterally *Routine Cardiovascular Exam Cardiovascular: Present RRR *Routine Abdominal Exam Abdominal: Present soft and normoactive bowel sounds; Absent tenderness *Routine Rectal Exam Rectal:: deferred *Routine Genitalia Exam Genitalia:: deferred *Routine Extremities Exam Extremities: Absent cyanosis, clubbing or edema *Routine Skin Exam Skin: Present warm; Absent rash *Routine Neurological Exam Neurological: Present alert and oriented X3 Assessment and Plan *Assessment and plan (1) Dysphagia: Status: Acute Category: Medical Code(s): R13.10 - Dysphagia, unspecified (2) Choking: Status: Acute Category: Medical Code(s): T17.308A - Unspecified foreign body in larynx causing other injury, initial encounter (3) History of esophageal stricture: Status: Acute Category: Medical Code(s): Z87.19 - Personal history of other diseases of the digestive system (4) Heartburn: Status: Acute Category: Medical Code(s): R12 - Heartburn Plan A/P: 1. Dysphagia and choking with history of esophageal stricture is the preprocedural diagnosis. The patient also reports daily heartburn. The patient will be anesthetized/sedated using MAC sedation. The patient has been seen and examined. Cardiac and lung assessment prior to the examination is stable. Proceed with planned diagnostic EGD.
--- NOTE | 2025-08-27 06:52 | P.PCN_ITS ---
[facility] Procedure Note Date: 08/27/25 Time: 08:48 Procedure Note:: Upper Endoscopy Procedure Report: Esophagogastroduodenoscopy with cold biopsies and TTS balloon dilation Endoscopost: Reji Rosales II, MD Referring Physician: ENRIQUE Norris Date of Procedure: August 27, 2025 Equipment: Olympus GIF-1100 standard upper endoscope Sedation: MAC sedation Indications: Mrs. Morris is a 74-year-old female who is here for diagnostic EGD. The patient does state that she gets some pain in the epigastrium postprandially and has to sit up or straighten up to get some relief. She reports some belching. The patient also has had dysphagia. She does get some tightness in her throat and always has to drink water after eating solids. She reports no nausea or early satiety. She was seen by a financial institution vice president in [place] and had multiple upper endoscopies over the years. Her last 1 was in 2023 and she has required multiple esophageal dilations. She does have heartburn. She does get choked easily. Sometimes she will have to regurgitate food and other times, she will have painful swallowing. She reports no bloating or gassiness. She is not on any acid suppression therapy. The examination is deemed medically necessary for diagnostic EGD. Procedure: Prior to the procedure, a history and physical exam was performed, and patient's medications and allergies were reviewed. The risks, benefits and alternatives of the sedation and procedure were discussed with the patient. All questions were answered and informed consent was obtained. The patient was brought to the procedure room. Patient identification and proposed procedure were verified by the physician and the nurse. The patient was placed in a left lateral decubitus position and the scope was passed under direct vision. Throughout the procedure, the patient's blood pressure, pulse, and oxygen saturations were monitored continuously. The upper GI endoscopy was accomplished without difficulty. The patient tolerated the procedure well. Findings: The scope was passed directly into the upper esophagus and advanced to the third portion of the duodenum. The post bulbar duodenum, ampulla and duodenal bulb were normal with normal mucosa and conniventes. Cold biopsies were taken from the second portion of the duodenum x 2 for the disaccharidase assay. The scope was withdrawn through a normal duodenal bulb and pylorus into the stomach. There was some mild linear reactive gastropathy of the antrum. The body and fundus of the stomach were normal. Upon retroflexion there was no hiatal hernia. Cold biopsies were taken from the antrum and incisura. The scope was then withdrawn into the esophagus. There was no evidence of reflux esophagitis or Mccray's. There was no Schatzki's ring, corrugation, webs or strictures. There was no inlet patch. There were tertiary contractions and abhinav dence of mild esophageal dysmotility. The entire esophagus was dilated to 60 [place]/20 mm with a TTS hydrostatic balloon. There was minimal resistance. The remainder of the esophageal mucosa was normal. Impression: 1. Nonerosive GERD with mild esophageal dysmotility 2. Mild linear reactive gastropathy Plan: I will follow-up the biopsies and disaccharidase assay. 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 We will discuss additional treatment options.
[2025-08-27 07:54] VITALS: BP 199/75; PULSE 70; RESP 16; TEMP 36.1; O2SAT 99; BMI 31.4
[2025-08-27] MEDS: LACTATED RINGERS 1000ML 1,000 ML 50 ML IV (08:06)
[2025-08-27 08:08] LABS: POC Glucose,Bedside 101 gm/dL (70-110)
--- NOTE | 2025-08-27 08:11 | P.PNANES_ITS ---
[facility] Disclaimer: The information contained in this section may have been updated after the patient was seen, as this information can be updated by other users. Medical History Fracture of left ankle Screening for HIV (human immunodeficiency virus) Encounter for hepatitis C screening test for low risk patient Encounter for screening for diabetes mellitus Family History Mother Family history of myocardial infarction Father Family history of myocardial infarction Social History Smoking Status: Never smoker alcohol intake: current alcohol intake frequency: holidays/special occasions only substance use type: denies use current occupational status: retired Travel in the last 8 weeks?: Inside the [place] Have you lived/traveled outside US in past 30 days?: Yes Contact w/someone who lives/traveled outside US past 30 days?: No Exposure to someone with infectious disease in past 14 days?: No Do you have a fever (greater than 100.4 F or 38 C)?: No Have you tested positive for COVID-19?: No Exposed to someone with COVID-19 in past 14 days?: No Do you have a sore throat?: No Do you have a cough?: No Do you have any weakness?: No Are you experiencing any nausea/vomitting?: No Do you have any diarrhea?: No Are you experiencing any unusual bleeding?: No Do you have any muscle aches/pain?: No Do you have any abdominal pain?: No Are you experiencing loss of taste or smell?: No [facility] Anesthesia Checklist Patient Identification Patient Identification: Arm Band and Verbal (Name & ) Structural Data Admitted From: Home Planned Operative Procedure/s: EGD Consent for Planned Operative Procedure(s) Verified: Yes Verified Documents: Surgical Consent and History and Physical NPO Status Verified Time NPO: 00:00 Additional verifications Anesthesia Reactions: No Airway Assessment Mallampati Score:: Class II Dentition: Good Dentition Neurological Assessment Level of Consciousness: Awake, Alert and Appropriate Hx Seizures: No Numbness or tingling in extremities: No Anesthesia Plan Anesthesia Risk discussed: Yes Anesthesia Plan: Verified ASA Class: III Anesthesia Type: MAC
[2025-08-27 08:51] VITALS: BP 114/72; PULSE 66; RESP 16; TEMP 36.2; O2SAT 96
[2025-08-27 09:01] VITALS: BP 131/57; PULSE 61; RESP 16; TEMP 36.2; O2SAT 97
[2025-08-27 09:11] VITALS: BP 139/75; PULSE 60; RESP 16; TEMP 36.2; O2SAT 97
[2025-08-27 09:21] VITALS: BP 123/70; PULSE 61; RESP 16; TEMP 36.2; O2SAT 98
[2025-09-02 16:21] LABS: Interpretation Notes (.); Lactase 37.55 (>/= 14.0); Maltase 179.75 (>/= 110.0); Palatinase 12.66 (>/= 8.5); Reference Notes (.); Sucrase 40.5 (>/= 25.0)
== END 2025-08-27 09:44 | disposition home or self-care (01) ==
PROVIDERS: PCP Nurse Practitioner Family; Visit Provider Internal Medicine Gastroenterology
PROC: 0DJ08ZZ Inspection of Upper Intestinal Tract, Via Natural or Artificial Opening Endoscopic (ICD-10-PCS; CPT 43239; principal; 2025-08-27 09:00)
DX: K21.9 Gastro-esophageal reflux disease without esophagitis (principal); K22.4 Dyskinesia of esophagus; K31.89 Other diseases of stomach and duodenum; T17.308A Unspecified foreign body in larynx causing other injury, initial encounter; Z87.19 Personal history of other diseases of the digestive system; Z88.8 Allergy status to other drugs, medicaments and biological substances
CPT/HCPCS: 43239; 43249; 82657; 82962; C1726; J2003; J2704; J7120

== ENCOUNTER 2025-08-28 09:32 | Outpatient (CLI) | payer MEDICARE, SELFPAY ==
--- OUTSIDE RECORDS SUMMARY | 2024-11-28 05:30 | XMS_ITS ---
Author Organization [facility] Address [address] [phone] Care Team Providers Care Sole Leveler Name Role Phone HORTENCIA HERNANDEZ Primary Care Provider REASON FOR VISIT Patient is in [place] and will C/B to rs Encounters Encounter Location Date Provider [place] [address] [address] [phone] 11/28/2024 HORTENCIA HERNANDEZ Plan Of Treatment No Information Progress Notes * CHRISTA GEIGEREDOB:1950 (74 yo F)Acc No.[id number]:11/28/2024 Progress Notes Patient: KATI BARTLETT Provider: Charlene Hernandez M.D. :1950 A ge:74 Y S ex:Female Date:11/28/2024 Address:[id number] [place] [address] Subjective: * Chief Complaints: * 1 . Patient is in [place] and will C/B to rs. * Medical History: * Ocular Surgical History: Objective: * Vitals: Assessment: Plan: * Treatment: Care Plan: * Problems: * Billing Information: * Visit Code: * Procedure Codes: * Electronic signature of HORTENCIA HERNANDEZ MD on 08/29/2025 at 10:50 AM EDT Sign off status: Pending * Provider: Charlene Hernandez M.D. Date: 0 11/28/2024 Generated for Printi ng/Faxing/eTransmitting on: 10:50 AM EDT
--- OUTSIDE RECORDS SUMMARY | 2024-12-16 07:40 | XMS_ITS ---
Author Organization [facility] Address [address] [phone] Care Team Providers Care Hemodialysis Rn Name Role Phone HORTENCIA HERNANDEZ Primary Care Provider Allergies Allergen (clinical drug ingredient) Drug/Non Drug Allergy documented on EMR Reaction Allergy Type Onset Date Status Information temporarily unavailable Influenza Vaccines Unknown Drug Allergy 11/13/2018 Active Information temporarily unavailable Latex Unknown Allergy 11/13/2018 Active REASON FOR VISIT Annual Physical and Wellness Social History Tobacco Use: Social History Observation Description Date Details (start date - stop date) Never Smoker NA - NA Tobacco Use/Smoking Question Answer Notes Tobacco use: nonsmoker Alcohol Screen (Audit-C) Question Answer Notes Did you have a drink containing alcohol in the p ast year? No Points 0 Interpretation Negative Tobacco use other than smoking: Question Answer Notes Are you an other tobacco user? No Problems Problem Type SNOMED Code ICD Code Onset Dates Problem Status W/U Status Risk Notes Problem Information temporarily unavailable Encounter for general adult medical examination with abnormal findings (Z00.01) Active confirmed Encounters Encounter Location [place] [address] [phone] 12/16/2024 HORTENCIA HERNANDEZ Encounter for general adult medical examination with abnormal findings Z00.01 ; Hyperlipidemia, unspecified hyperlipidemia type E78.5 ; Osteopenia, unspecified location M85.80 and Hypothyroidism, unspecified type E03.9 Assessments Encounter Date Diagnosis (ICD Code) Assessment Notes Treatment Notes Treatment Clinical Notes Section Notes 12/16/2024 Encounter for general adult medical examination with abnormal findings (ICD-10 - Z00.01) 12/16/2024 Hyperlipidemia, unspecified hyperlipidemia type (ICD-10 - E78.5) 12/16/2024 Osteopenia, unspecified location (ICD-10 - M85.80) 12/16/2024 Hypothyroidism, unspecified type (ICD-10 - E03.9) Plan Of Treatment No Information Progress Notes * VLADIMIR GEIGEROB:1950 (74 yo F)Acc No.[id number]:12/16/2024 Progress Notes Patient: KATI BARTLETT Provider: Charlene Hernandez M.D. :1950 A ge:74 Y S ex:Female Date:12/16/2024 Address:[address] [place] [address] Subjective: * Chief Complaints: * 1 . Annual Physical and Wellness. * ROS: G eneral / Constitutional: Patient denies f atigue, headache, lightheadedness, weakness. O phthalmologic: Patient denies b lurry vision, change in vision, eye pain.? E NT: Patient denies d ecreased hearing, difficulty in swallowing, dry mouth, ear pain, sore throat. R espiratory: Patient denies c hest pain, cough, shortness of breath.? C ardiovascular: Patient denies d izziness, irregular heartbeat, palpitations, weakness. G astrointestinal: Patient denies a bdominal pain, blood in stool, heartburn.? G enitourinary: Patient denies b lood in the urine, difficulty urinating, frequent urination. N eurologic: Patient denies l ow back pain, tingling/numbness, tremor.? P sychiatric: Patient denies a nxiety, depressed mood, difficulty sleeping, substance abuse. * Medical History: M ammogram: 01/03/2024 Neg, Fibrocystic dense breast, Dexa: 04/14/2023 Osteopenia, Essential (primary) hypertension, Colonoscopy: 01/02/2019 Normal, First degree hemorrhoids, Colon, diverticulosis, Colonoscopy: 2018-Polyps removed (Benign), Recheck in 6 mo, Arthritis, Leaky Bladder, High blood pressure. * Surgical History: C losed fracture of left lower limb , Tubal ligation . * Ocular Surgical History: * Family History: M other: 63 yrs, diagnosed with [place]. B darier: 58 yrs, diagnosed with Heart Disease. F ather: diagnosed with Alcohol Abuse. S ister: diagnosed with Heart Disease.? * Social History: T obacco Use: T obacco Use/Smoking T obacco use: n onsmoker Tobacco use other than smoking A re you an other tobacco user? N o D rug/Alcohol: D rugs H ave you used drugs other than those for medical reasons in the past 12 months? N o Alcohol Screen (Audit-C) D id you have a drink containing alcohol in the past year? N o P oints 0 I nterpretation N egative Do you smoke marijuana?: Denies. Do you drink alcohol?: Yes, wine on occasion. * Allergies: I nfluenza Vaccines: Allergy - Onset Date 11/13/2018, Latex: Allergy - Onset Date 11/13/2018. Objective: * Vitals: * Examination: G eneral Examination: General appearance: a lert, pleasant, well-nourished and in no acute distress. Head: n ormocephalic, atraumatic. Eyes: n ormal, pupils equal, round, reactive to light and accommodation, extraocular movement intact (EOMI). Ears: n ormal, auditory canal clear, tympanic membrane intact and clear, light reflex present. Nose: n zayda patent, septum intact, sinuses nontender bilaterally. Oral cavity: w ith good dentition, mucosa moist, tongue is midline. Throat: c lear, pharynx normal, uvula midline. Neck / thyroid: c arotid pulses are normal and without bruits, neck is supple, with full range of motion and no cervical lymphadenopathy. Lymph nodes: n o axillary, supraclavicular or inguinal lymphadenopathy, no cervical lymphadenopathy. Skin: s kin is warm and dry, with no rashes, good skin turgor and normal hair distribution. Heart: r egular rate and rhythm without murmurs, gallops, clicks or rubs. Lungs: c lear to auscultation bilaterally, with good air movement and no rales, rhonchi or wheezes. Chest: c hest wall with no costochondral junction tenderness, no rib deformity and normal shape and expansion. Abdomen: s oft with good bowel sounds, nontender, and no masses or hepatosplenomegaly. Back: n ormal, without kyphoscoliosis or tenderness, full range of motion without difficulty. Extremities: n ormal extremity with no clubbing, cyanosis or edema, full range of motion, good capillary refill in nail beds. Peripheral pulses: n ormal 2+ arterial pulses. Neurologic: a lert and oriented, cognitive exam grossly normal, cranial nerves 2-12 grossly intact, deep tendon reflexes 2+ symmetrical, gait normal, normal upper and lower extremity motor strength and function. Psych: c ooperative with exam, maintains good eye contact, normal affect / mood. Assessment: * Assessment: 1. E ncounter for general adult medical examination with abnormal findings - Z00.01 ?2. H yperlipidemia, unspecified hyperlipidemia type - E78.5 3 . O steopenia, unspecified location - M85.80 4 . H ypothyroidism, unspecified type - E03.9 Plan: * Treatment: * Preventive Medicine: Screenings: F all risk screening Fall Risk Assessment: N o falls in the past year Have you had two or more falls in the past year? N o Have you had any falls with injury in the past year? N o P ain Assessment Overall body pain assessed N o pain is present F unctional Status Assessment ADL's were assessed 0 -2024 Patient needs assistance with ADLs??No A dvanced Care Planning Date discussed -2024 Care Plan: * Problems: * Billing Information: * Visit Code: * Procedure Codes: * Electronic signature of HORTENCIA HERNANDEZ MD on 08/29/2025 at 10:50 AM EDT Sign off status: Pending * Provider: Charlene Hernandez M.D. Date: 0 12/16/2024 Generated for Kb varghese/Emmanuelle/eTransmitting on: 1 10:50 AM EDT History and Physical Notes * Examination Category Sub-Category Detail Notes Category Not es General Examination General appearance: alert, p leasant, well-nourished and in no acute distress Head: normocephalic, atrau matic Eyes: normal, pupils equal , round, reactive to light and accommodation, extraocular movement intact (EOMI) Ears: normal, auditory can al clear, tympanic membrane intact and clear, light reflex present Nose: nares patent, septum intact, sinuses nontender bilaterally Throat: clear, pharynx justin l, uvula midline Neck / thyroid: carotid pulses are n ormal and without bruits, neck is supple, with full range of motion and no cervical lymphadenopathy Heart: regular rate and rhy thm without murmurs, gallops, clicks or rubs Chest: chest wall with no c ostochondral junction tenderness, no rib deformity and normal shape and expansion Lungs: clear to auscultatio n bilaterally, with good air movement and no rales, rhonchi or wheezes Abdomen: soft with good bowel sounds, nontender, and no masses or hepatosplenomegaly Neurologic: alert and oriented, cognitive exam grossly normal, cranial nerves 2- 12 grossly intact, deep tendon reflexes 2+ symmetrical, gait normal, normal upper and lower extremity motor strength and function Skin: skin is warm and dry , with no rashes, good skin turgor and normal hair distribution Extremities: normal extremity wit h no clubbing, cyanosis or edema, full range of motion, good capillary refill in nail beds Peripheral pulses: normal 2+ arterial p ulses Back: normal, without kyph oscoliosis or tenderness, full range of motion without difficulty Lymph nodes: no axillary, supracl avicular or inguinal lymphadenopathy, no cervical lymphadenopathy Psych: cooperative with exa m, maintains good eye contact, normal affect / mood Oral cavity: with good dentition, mucosa moist, tongue is midline
[2025-08-28 13:30] LABS: Microscopic, Urine URINE MICROSCOPIC (MICROSCOPIC)
[2025-08-28 14:40] LABS: Hemoglobin A1C 6.3 % (4.0-6.0)
[2025-08-28 14:59] LABS: Bilirubin,Urine Negative (Negative); Color,Urine YELLOW (Yellow); Glucose,Urine (UA) Negative (Negative); Ketones,Urine Negative (Negative); Leukocyte Esterase,Urine Negative (Negative); PH,Urine 6.0 (5.0-8.5); Protein,Urine Negative (Negative); Specific Gravity, Urine 1.020 (1.005-1.030); Urobilinogen,Urine 0.2 EU/dl (0.2)
[2025-08-28 15:24] LABS: Chloride 99 mmol/L (98-107); Potassium 4.9 mmoL/L (3.5-5.1); Sodium 137 mmol/L (136-145)
[2025-08-28 15:27] LABS: Anion Gap 11.9 mEq/L (5-15); Blood Urea Nitrogen 23 mg/dl (7-17); Carbon Dioxide 31 mmol/L (22.0-30.0); Creatinine,Serum 1.30 mg/dl (0.52-1.04); Estimated Glomerular Filt Rate 40 ml/min (>60); GFR (African American) 48 ML/MIN (>60)
[2025-08-28 15:28] LABS: Calcium 9.1 mg/dl (8.4-10.2); Cholesterol 254 mg/dl (140-200); Glucose 100 mg/dl (74-100); HDL Cholesterol 78 mg/dl (40-60); Triglycerides 144 mg/dl (30-150)
[2025-08-28 19:20] LABS: Bacteria,Urine 3+ /lpf
--- OUTSIDE RECORDS SUMMARY | 2025-08-29 10:50 | XMS_ITS | Patient Health Record ---
Author Organization [facility] [place] Address [address] [place], [place] [id number] Care Team Providers Care Banquet Waiter/Waitress Name Role Phone HORTENCIA ROWAN Primary Care Provider [phone] Allergies Allergen (clinical drug ingredient) Drug/Non Drug Allergy documented on EMR Reaction Allergy Type Onset Date Status Information temporarily unavailable Influenza Vaccines Unknown Drug Allergy 11/13/2018 Active Information temporarily unavailable Latex Unknown Allergy 11/13/2018 Active Results Component Value Reference Range Notes TSH (899) Reviewed date:02/07/2025 09:53:02 AM Interpretation: Performing Lab:[facility], [facility]-[id number] [id number] Gerry Finley MD Notes/Report: FASTING:YES FASTING: YES TSH 3.98 0.40-4.50 mIU/L T4, FREE (866) Reviewed date:02/07/2025 09:53:02 AM Interpretation: Performing Lab:[facility] [id number] Gerry Finley MD Notes/Report: FASTING:YES FASTING: YES T4, FREE 1.1 0.8-1.8 ng/dL CBC (INCLUDES DIFF/PLT) (639 9) Reviewed date:02/07/2025 09:53:02 AM Interpretation: Performing Lab:[facility] [id number] Gerry Finley MD Notes/Report: FASTING:YES [...] MPV 10.8 7.5-12.5 fL ABSOLUTE NEUTROPHILS 3188 7200-3548 cells/uL ABSOLUTE LYMPHOCYTES 2974 850-3900 cells/uL ABSOLUTE MONOCYTES 490 200-950 cells/uL ABSOLUTE EOSINOPHILS 152 15-500 cells/uL ABSOLUTE BASOPHILS 97 0-200 cells/uL NEUTROPHILS 46.2 LYMPHOCYTES 43.1 MONOCYTES 7.1 EOSINOPHILS 2.2 BASOPHILS 1.4 ALT (823) Reviewed date:02/07/2025 09:53:02 AM Interpretation: Performing Lab:[facility] Jennifer-[id number] [id number] Gerry Finley MD Notes/Report: FASTING:YES FASTING: YES ALT 14 6-29 U/L AST (822) Reviewed date:02/07/2025 09:53:02 AM Interpretation: Performing Lab:[facility] Monicaa[address] [id number] Gerry Finley MD Notes/Report: FASTING:YES FASTING: YES AST 17 10-35 U/L BASIC METABOLIC PANEL (04997 ) Reviewed date:02/07/2025 09:53:02 AM Interpretation: Performing Lab:[facility]) [id number] [id number] Gerry Finley MD Notes/Report: FASTING:YES FASTING: YES [...] Reviewed date:02/07/2025 09:53:02 AM Interpretation: Performing Lab:[facility] Diagnostics-[id number] [id number] Gerry Finley MD Notes/Report: FASTING:YES FASTING: YES CHOLESTEROL, TOTAL 249 <200 mg/dL HDL CHOLESTEROL 77 > OR = 50 mg/dL TRIGLYCERIDES 148 <150 mg/dL LDL-CHOLESTEROL 145 Reference range: <100 Desirable range <100 mg/dL for primary prevention; <70 mg/dL for patients with CHD or diabetic patients with > or = 2 CHD risk factors. LDL-C is now calculated using the Leeroy-Jeremi calculation, which is a validated novel method providing better accuracy than the Friedewald equation in the estimation of LDL-C. Leeroy SS et al. KRYSTIN. 2013;310(19): 2061-3771 (http://education.[employer].rVita/faq/IEB137) CHOL/HDLC RATIO 3.2 <5.0 (calc) NON HDL CHOLESTEROL 172 <130 mg/dL (calc) For patients with diabetes plus 1 major ASCVD risk factor, treating to a non-HDL-C goal of <100 mg/dL (LDL-C of <70 mg/dL) is considered a therapeutic option. HEMOGLOBIN A1c (496) Reviewed date:02/14/2025 09:24:59 AM Interpretation: Performing Lab:[facility] Diagnostics-[id number] [id number] Gerry Finley MD Notes/Report: NON-FASTING; NON-FASTING FASTING:YES [...] Reviewed date:02/14/2025 09:24:58 AM Interpretation: Performing Lab:[facility]) Diagnostics-[id number] [address], [id number] Gerry Finley MD Notes/Report: NON-FASTING; NON-FASTING FASTING:YES [...] TO FOLLOW CULTURE, URINE, ROUTINE Micro Number: [id number] Test Status: Final Specimen Source: Urine Specimen [...] TO FOLLOW CULTURE, URINE, ROUTINE Micro Number: [id number] Test Status: Final Specimen Source: Urine Specimen [...] Status Risk Notes Problem Information temporarily unavailable Essential (primary) hypertension (I10) Active confirmed Problem Information temporarily unavailable First degree hemorrhoids (K64.0) Active confirmed Problem Information temporarily unavailable Other cyst of bone, left lower leg (M85.662) Active confirmed Problem Information temporarily unavailable Other fatigue (R53.83) Active confirmed Problem Information temporarily unavailable Syncope and collapse (R55) Active confirmed Problem Information temporarily unavailable Hyperglycemia, unspecified (R73.9) Active confirmed Problem Information temporarily unavailable Encounter for general adult medical examination with abnormal findings (Z00.01) Active confirmed Problem Information temporarily unavailable Hyperlipidemia, unspecified hyperlipidemia type (E78.5) Active confirmed Problem Information temporarily unavailable Hypothyroidism, unspecified type (E03.9) Active confirmed Problem Information temporarily unavailable Colon, diverticulosis (K57.30) Active confirmed Problem Information temporarily unavailable Urinary tract infection without hematuria, site unspecified (N39.0) Active confirmed Problem Information temporarily unavailable Benign paroxysmal vertigo, unspecified laterality (H81.10) Active confirmed Problem Information temporarily unavailable Stage 3 chronic kidney disease, unspecified whether stage 3a or 3b CKD (N18.30) Active confirmed Problem Information temporarily unavailable Osteopenia, unspecified location (M85.80) Active confirmed Vital Signs Heart Rate 79 /min 12/30/2024 Height-cm 167.64 cm 12/30/2024 Blood pressure diastolic 83 mm Hg 12/30/2024 Weight-kg 91.44 kg 12/30/2024 Height 66 in 12/30/2024 Blood pressure systolic 133 mm Hg 12/30/2024 Weight 201.6 lbs 12/30/2024 BMI 32.54 kg/m2 12/30/2024 Encounters Encounter Location Date Provider Diagnosis [facility] MONREAL [address] [place] [id number] 12/30/2024 HORTENCIA ROWAN Encounter for general adult medical examination with abnormal findings Z00.01 ; Stage 3 chronic kidney disease, unspecified whether stage 3a or 3b CKD N18.30 ; Osteopenia, unspecified location M85.80 ; Hyperlipidemia, unspecified hyperlipidemia type E78.5 ; Hypothyroidism, unspecified type E03.9 and Essential (primary) hypertension I10 Hortencia MONREAL [address] [address] [id number] 12/30/2024 HORTENCIA MONREAL [address] [address] [place] [id number] 02/07/2025 HORTENCIA ROWAN Urinary tract infection without hematuria, site unspecified N39.0 ; Hyperlipidemia, unspecified hyperlipidemia type E78.5 and Hyperglycemia, unspecified R73.9 Hortencia MONREAL [address] [place] [place] [id number] 02/14/2025 HORTENCIA ROWAN Assessments Encounter Date Diagnosis (ICD Code) Assessment Notes Treatment Notes Treatment Clinical Notes Section Notes 02/07/2025 Urinary tract infection without hematuria, site unspecified (ICD-10 - N39.0) 02/07/2025 Hyperlipidemia, unspecified hyperlipidemia type (ICD-10 - E78.5) 12/30/2024 Encounter for general adult medical examination with abnormal findings (ICD-10 - Z00.01) 12/30/2024 Stage 3 chronic kidney disease, unspecified whether stage 3a or 3b CKD (ICD-10 - N18.30) Recheck labs 02/07/2025 Hyperglycemia, unspecified (ICD-10 - R73.9) 12/30/2024 Osteopenia, unspecified location (ICD-10 - M85.80) [...] End Date MEDICARE PART B [address] [address] ANA ARREDONDO [id number] KATI GEIGER Self - patient is the insured 3 [facility] [address] [place], [place] [id number] KATI GEIGER Self - patient is the [...]
== END 2025-08-28 23:59 | disposition home or self-care (01) ==
LOC: LAB.DROPOF 08-29 10:46
PROVIDERS: PCP Nurse Practitioner Family; Visit Provider Nurse Practitioner Family
DX: E78.5 Hyperlipidemia, unspecified (principal); E11.9 Type 2 diabetes mellitus without complications; F41.9 Anxiety disorder, unspecified; F32.A Depression, unspecified; I10 Essential (primary) hypertension; R39.9 Unspecified symptoms and signs involving the genitourinary system
CPT/HCPCS: 80048; 80061; 81001; 82043; 82570; 83036; 84156; 87086